=== PATIENT | female | born 1995 | race American Indian/Alaskan Native ===

== ENCOUNTER 2018-04-27 16:24 | Emergency (ER) | payer SELFPAY ==
[2018-04-27 16:32] VITALS: BP 141/74
--- NOTE | 2018-04-27 17:34 | Emergency Department Report ---
Blank Doc - Documentation Documentation: Patient is a 22-year-old female presented with lower abdominal crampiness and vaginal discharge for the last 2-3 days. Patient states there is no dysuria or abnormal bleeding. Patient is worried about STDs and because of recent sexual activity has been protected. On focused physical exam patient does have some mild lower abdominal discomfort. Urinalysis per extensive been ordered.
[2018-04-27 18:05] LABS: HCG Qualitative,Urine Negative (Negative)
[2018-04-27 18:06] LABS: Bacteria,Urine 1+ /HPF (Negative); Bilirubin,Urine NEG (Negative); Blood,Urine NEG (Negative); Color,Urine Yellow (Yellow); Mucus,Urine 3+ /HPF; Protein,Urine <15 mg/dL mg/dL (Negative)
[2018-04-27 18:26] LABS: BUN/Creatinine Ratio 14; Blood Urea Nitrogen 7 mg/dL (7-17); Calcium 9.3 mg/dL (8.4-10.2); Hemolysis Index 7
[2018-04-27 18:33] LABS: Basophils % (Auto) 0.6 % (0.0-1.8); Eosinophils # (Auto) 0.1 K/mm3 (0.0-0.4); Eosinophils % (Auto) 1.2 % (0.0-4.3); Hematocrit 32.5 % (30.3-42.9); Hemoglobin 10.3 gm/dl (10.1-14.3); Lymphocytes # (Auto) 2.2 K/mm3 (1.2-5.4); Lymphocytes % (Auto) 25.9 % (13.4-35.0); Mean Corpuscular HGB Conc 32 % (30-34); Monocytes # (Auto) 0.5 K/mm3 (0.0-0.8); Monocytes % (Auto) 6.1 % (0.0-7.3); Platelet Count 303 K/mm3 (140-440); Red Blood Count 4.68 M/mm3 (3.65-5.03)
[2018-04-27 18:35] LABS: Mean Corpuscular Hemoglobin 22 pg (28-32); Mean Corpuscular Volume 70 fl (79-97); Red Cell Distribution Width 23.1 % (13.2-15.2)
--- NOTE | 2018-04-27 19:15 | Ultrasound Report ---
FINAL REPORT EXAM: US PELVIC COMPLETE HISTORY: pelvic pain TECHNIQUE: Transabdominal and transvaginal sonography of the pelvis. Duplex Doppler was performed. PRIORS: None. FINDINGS: The uterus measures 6.8 x 3.4 x 4.8 cm and appears grossly unremarkable. The endometrial stripe is within normal limits and measures 5-6 mm in AP dimension. The right ovary measures 3.8 x 2.0 x 2.5 cm and is grossly unremarkable. The left ovary measures 2.4 x 1.9 x 1.7 cm and is grossly unremarkable. Duplex Doppler shows appropriate blood flow present in the ovaries bilaterally. No adnexal masses or significant free peritoneal fluid. IMPRESSION: 1. No acute findings.
--- NOTE | 2018-04-27 19:16 | Ultrasound Report ---
FINAL REPORT EXAM: US TRANSVAGINAL HISTORY: pelvic pain TECHNIQUE: Transabdominal and transvaginal sonography of the pelvis. Duplex Doppler was performed. PRIORS: None. FINDINGS: The uterus measures 6.8 x 3.4 x 4.8 cm and appears grossly unremarkable. The endometrial stripe is within normal limits and measures 5-6 mm in AP dimension. The right ovary measures 3.8 x 2.0 x 2.5 cm and is grossly unremarkable. The left ovary measures 2.4 x 1.9 x 1.7 cm and is grossly unremarkable. Duplex Doppler shows appropriate blood flow present in the ovaries bilaterally. No adnexal masses or significant free peritoneal fluid. IMPRESSION: 1. No acute findings.
[2018-04-27] MEDS ORDERED: XYLOCAINE 1% MPF 5 mL INFILTRATI ONE (19:45)
[2018-04-27] MEDS ORDERED: FLAGYL PO ONE (19:45)
[2018-04-27] MEDS ORDERED: ZITHROMAX PO ONE (19:45)
[2018-04-27] MEDS ORDERED: ROCEPHIN IM ONE (19:45)
--- NOTE | 2018-04-27 19:48 | Emergency Department Report ---
ED Female HPI - General Chief complaint: Urogenital-Female Stated complaint: STOMACH PAIN Time Seen by Provider: 04/27/18 17:20 Source: patient Mode of arrival: Ambulatory Limitations: No Limitations - History of Present Illness Initial comments: j[place]ica is a 22-year-old female presented with lower abdominal crampiness and vaginal discharge for the last 2-3 days. Patient states there is no dysuria or abnormal bleeding. Patient is worried about STDs and because of recent sexual activity has been protected. On focused physical exam patient does have some mild lower abdominal discomfort. Urinalysis per extensive been ordered. MD Complaint: vaginal discharge, dysuria, pelvic pain, possible STD Onset/Timin -: days(s) Severity scale (0 -10): 4 Quality: cramping Consistency: constant Improves with: none Worsens with: none Are you Now?: No Last Menstrual Period: 04/07/18 EDC: 01/12/19 Associated Symptoms: vaginal discharge, dysuria - Related Data Sexually active: Yes : 0 Para: 0 A: 0 Previous Rx's Medication Instructions Recorded Last Taken Type Doxycycline Hyclate [Vibramycin] 100 mg PO BID #20 capsule 04/27/18 Unknown Rx Fluconazole [Diflucan TAB] 150 mg PO ONCE #1 tablet 04/27/18 Unknown Rx Allergies Allergy/AdvReac Type Severity Reaction Status Date / Time No Known Allergies Allergy Unverified 04/27/18 16:33 ED Review of Systems ROS: Stated complaint: STOMACH PAIN Other details as noted in HPI Constitutional: denies: chills, fever Eyes: denies: eye pain, eye discharge, vision change ENT: denies: ear pain, throat pain Respiratory: denies: cough, shortness of breath, wheezing Cardiovascular: denies: chest pain, palpitations Endocrine: no symptoms reported Gastrointestinal: denies: abdominal pain, nausea, diarrhea Genitourinary: urgency, frequency, discharge. denies: dysuria, dyspareunia Musculoskeletal: denies: back pain, joint swelling, arthralgia Skin: denies: rash, lesions Neurological: denies: headache, weakness, paresthesias Psychiatric: denies: anxiety, depression Hematological/Lymphatic: denies: easy bleeding, easy bruising ED Past Medical Hx - Past Medical History Previous Medical History?: No - Surgical History Additional Surgical History: vaginal delivery - Social History Smoking Status: Never Smoker Substance Use Type: None - Medications Home Medications: Home Medications Medication Instructions Recorded Confirmed Last Taken Type Doxycycline Hyclate [Vibramycin] 100 mg PO BID #20 capsule 04/27/18 Unknown Rx Fluconazole [Diflucan TAB] 150 mg PO ONCE #1 tablet 04/27/18 Unknown Rx ED Physical Exam - General Limitations: No Limitations General appearance: alert, in no apparent distress - Head Head exam: Present: atraumatic, normocephalic - Eye Eye exam: Present: normal appearance - ENT ENT exam: Present: mucous membranes moist - Neck Neck exam: Present: normal inspection - Respiratory Respiratory exam: Present: normal lung sounds bilaterally. Absent: respiratory distress - Cardiovascular Cardiovascular Exam: Present: regular rate, normal rhythm. Absent: systolic murmur, diastolic murmur, rubs, gallop - GI/Abdominal GI/Abdominal exam: Present: soft, normal bowel sounds. Absent: distended, bruit , hernia - Rectal Rectal exam: Present: deferred - External exam: Present: other (as noted ) - Extremities Exam Extremities exam: Present: normal inspection - Back Exam Back exam: Present: normal inspection, full ROM. Absent: CVA tenderness (R) - Neurological Exam Neurological exam: Present: alert, oriented X3, CN II-XII intact, normal gait - Psychiatric Psychiatric exam: Present: normal affect, normal mood - Skin Skin exam: Present: warm, dry, intact, normal color. Absent: rash ED Course Vital Signs 04/27/18 16:28 Temperature 98.8 F Pulse Rate 71 Respiratory 16 Rate Blood Pressure 141/74 O2 Sat by Pulse 100 Oximetry ED Medical Decision Making - Lab Data Result diagrams: 04/27/18 18:04 04/27/18 18:04 Laboratory Tests 04/27/18 04/27/18 04/27/18 17:27 18:04 18:04 WBC 8.7 RBC 4.68 Hgb 10.3 Hct 32.5 MCV 70 L MCH 22 L MCHC 32 RDW 23.1 H Plt Count 303 Lymph % (Auto) 25.9 Noble % (Auto) 6.1 Eos % (Auto) 1.2 Baso % (Auto) 0.6 Lymph # 2.2 Noble # 0.5 Eos # 0.1 Baso # 0.0 Seg Neutrophils % 66.2 Seg Neutrophils # 5.8 Sodium 137 Potassium 4.0 Chloride 100.3 Carbon Dioxide 27 Anion Gap 14 BUN 7 Creatinine 0.5 L Estimated GFR > 60 BUN/Creatinine Ratio 14 Glucose 79 Calcium 9.3 Urine Color Yellow Urine Turbidity Cloudy Urine pH 7.0 Ur Specific [place] 1.019 Urine Protein <15 mg/dl Urine Glucose (UA) Neg Urine Ketones Neg Urine Blood Neg Urine Nitrite Neg Ur Reducing Substances Not Reportable Urine Bilirubin Neg Urine Ictotest Not Reportable Urine Urobilinogen 2.0 Ur Leukocyte Esterase Tr Urine WBC (Auto) 12.0 H Urine RBC (Auto) 5.0 U Epithel Cells (Auto) 23.0 H Urine Bacteria (Auto) 1+ Urine Mucus 3+ Urine HCG, Qual Negative wet prep pos fot Trich and Clues BV - Medical Decision Making Probe is positive for Trichomonas and positive clue cells plan treat STD given pelvic pain we'll DC with doxycycline to cover PID patient will follow up with health department for HIV and HSV screening discussed lab findings the patient and follow-up plan patient verbalized agreement and understanding with single be DC'd home in stable condition at this time patient is tolerating by mouth intake there is no nausea vomiting abdominal pain no vaginal bleeding Critical care attestation.: If time is entered above; I have spent that time in minutes in the direct care of this critically ill patient, excluding procedure time. ED Disposition Clinical Impression: STD (female) Disposition: DC-01 TO HOME OR SELFCARE Is pt being admited?: No Does the pt Need Aspirin: No Condition: Good Instructions: Trichomoniasis (ED), Sexually Transmitted Diseases (ED) Additional Instructions: follow up with health department for HIV and Herpes screening Prescriptions: Doxycycline Hyclate [Vibramycin] 100 mg PO BID #20 capsule Fluconazole [Diflucan TAB] 150 mg PO ONCE #1 tablet Referrals: [facility] [Outside] - 3-5 Days Forms: Work/School Release Form(ED) Time of Disposition: 19:52
== END 2018-04-27 20:36 | disposition home or self-care (01) ==
LOC: ED 16:24
DX: A64 Unspecified sexually transmitted disease (principal)
CPT/HCPCS: 36415; 76830; 76856; 80048; 81001; 81025; 85025; 87210; 87591; 96372; 99284; J0696